=== PATIENT | male | born 1960 | race Caucasian/White ===

== ENCOUNTER 2019-02-04 04:56 | Day surgery (SDC) | payer BC ==
[2019-02-04] MEDS ORDERED: FENTANYL PF 100MCG/2ML VIAL IV ONE (04:57)
[2019-02-04] MEDS ORDERED: SEVOFLURANE 250 ML INH ONE (04:57)
[2019-02-04] MEDS ORDERED: PROPOFOL 10 MG/ML VIAL IV ONE (04:57)
[2019-02-04] MEDS ORDERED: MIDAZOLAM HCL 2MG/2ML VIAL IV ONE (04:57)
[2019-02-04] MEDS ORDERED: ONDANSETRON HCL IV 4 MG/2 ML VIAL IVP ONE (04:57)
[2019-02-04] MEDS ORDERED: DEXAMETHASONE 4 MG/ML 1ML VIAL IVP ONE (04:57)
[2019-02-04] MEDS ORDERED: LIDOCAINE 2% MDV (20MG/ML) 20ML VIAL IV ONE (04:57)
[2019-02-04] MEDS ORDERED: RINGERS SOLUTION,LACTATED 1,000 ML IV ONE ×2 (05:38→06:00)
[2019-02-04] MEDS ORDERED: ACETAMINOPHEN 1,000 MG/100 ML BTL IV ONE (06:00)
[2019-02-04] MEDS ORDERED: ACETAMINOPHEN 1,000 MG/100 ML BTL IVPB ONE (06:00)
[2019-02-04] MEDS ORDERED: BUPIVACAINE 0.25% W/EPI MPF 30ML VIAL SQ ONE (07:03)
--- NOTE | 2019-02-05 09:11 | Operative Note ---
DATE OF SERVICE: 02/04/2019. DATE OF SURGERY: 02/04/2019. PREOPERATIVE DIAGNOSES: 1. Torn lateral meniscus of the right knee. 2. Chondromalacia of the right knee. POSTOPERATIVE DIAGNOSES: 1. Torn medial meniscus, right knee. 2. Medial midpatellar plica, right knee. 3. Osteoarthritis, right knee. OPERATION: 1. Arthroscopic partial meniscectomy, right knee. 2. Arthroscopic resection, medial midpatellar plica, right knee. SURGEON: Von Mendez DO. REFERRING PHYSICIAN: Alyx Whatley, Nurse Practitioner. PROCEDURE: This 58-year-old male was taken to the operating room, placed in the supine position on the operating room table, where general anesthesia was induced. The right lower extremity was elevated. It was exsanguinated, tourniquet inflated to 300 mmHg, arthroscopic knee pham applied, right knee prepped with Hibiclens and draped in the usual sterile fashion. An inferolateral portal was established with a 4 mm arthroscope, and initial evaluation of the joint demonstrated minimal chondromalacia of the patella, and there were grade 2 changes noted throughout the entire trochlea, but no grossly unstable articular cartilage was present. We probed to confirm these findings. The patient did, however, have a very thickened and fibrotic and partially torn medial midpatellar plica. This was resected with the rotating shaver. We then directed our attention to the medial compartment, and a complex horizontal cleavage tear was identified in the posterior horn with the apex being at the 12 o'clock position. We resected back to the apex of the tear and then tapered in each direction, extending into the body of the meniscus to about the 2 o'clock position. Utilizing the rotating shaver and basket forceps, we resected the apex and then tapered in each direction to form a smooth contour, stable meniscal rim. This was reprobed and confirmed to be stable. He had an area of approximately 3/4 of a cm of complete denuded articular cartilage on the posterior medial corner of the tibial plateau. The medial femoral condyle demonstrated minimal grade 2 changes. We then directed our attention to the intercondylar notch, and it appeared as though the patient has had some injury to his anterior cruciate ligament in the past. It did not appear to be completely disrupted, but some of the fibers appeared to be frayed. We then directed our attention to the lateral compartment. The lateral compartment appeared essentially normal, except for some grade 2 chondromalacia of the tibial plateau. There was grade 1 softening of the lateral femoral condyle. No grossly unstable articular cartilage was present there, and it was not further disturbed. The wound was irrigated and suctioned. The instruments were removed, the portals infiltrated with 0.25% Marcaine with epinephrine, sterile dressings applied, tourniquet and knee pham released, and the patient taken to the recovery room in satisfactory condition. GROSS PATHOLOGY: This patient had tricompartmental degenerative changes with the worst being noted in the posteromedial corner with a full-thickness defect present there and grade 2 changes noted elsewhere, except for the lateral femoral condyle, which was grade 1 changes. Torn medial meniscus, as described. MTDD
== END 2019-02-04 08:24 | disposition home or self-care (01) ==
LOC: SUR 04:56
PROVIDERS: ATTEND Orthopaedic Surgery
DX: S83.231A Complex tear of medial meniscus, current injury, right knee, initial encounter (principal); M67.51 Plica syndrome, right knee; M94.261 Chondromalacia, right knee
CPT/HCPCS: J2405; J7120